=== PATIENT | female | born 1970 | race Hispanic/Latino ===

== ENCOUNTER 2018-05-04 09:09 | Outpatient (CLI) | payer OTHER | END 2018-05-04 09:10 | disposition home or self-care (01) | LOC: LAB 09:09 ==

== ENCOUNTER 2018-05-04 12:25 | Observation (INO) | payer OTHER ==
--- NOTE | 2018-05-04 13:32 | ED PDOC ---
Arrival/HPI <Keith Multani - Last Filed: 05/04/18 15:27> - General Historian: Patient - History of Present Illness Narrative History of Present Illness (Text): Patient is a 47 F with PMH abnormal uterine bleeding 2/2 fibroids (has gynecological f/u) who [place] [facility] physicians [place] after a finding of hgb of 6.4. Her most recent previous hgb was 10.5 in June 2016. Patient indicates that she is currently 2 weeks into a very heavy period in which she is using 5+ super maxi pads per day. She states that she often has heavy periods like this ever since her IUD was removed 2 years ago. Patient denies any associated symptoms such as fatigue, dizziness, SOB, BARTHOLOMEW, chest pain, f/c, n/v, abdominal pain. She is currently refusing blood transfusion due to personal safety concerns. Patient indicates that it coordinator recommended fibroid removal but she refused procedure. 05/04/18 13:27 05/04/18 13:37 Time/Duration: Prior to Arrival, 1-3 hours Symptom Course: Unchanged <Palak Motley - Last Filed: 05/04/18 15:50> - General Chief Complaint: Abnormal Labs Time Seen by Provider: 05/04/18 12:30 Past Medical History - Provider Review Nursing Documentation Reviewed: Yes - Infectious Disease Hx of Infectious Diseases: None - Tetanus Immunization Tetanus Immunization: Unknown - Reproductive Menopause: No - Past Medical History Past Medical History: No Previous - Cardiac Hx Cardiac Disorders: No Hx Pacemaker: No - Pulmonary Hx Respiratory Disorders: No - Neurological Hx Paralysis: No - HEENT Hx HEENT Disorder: No - Renal Hx Renal Disorder: No - Endocrine/Metabolic Hx Endocrine Disorders: No - Hematological/Oncological Hx Blood Transfusions: No Hx Blood Transfusion Reaction: No - Integumentary Hx Dermatological Disorder: No - Musculoskeletal/Rheumatological Hx Musculoskeletal Disorders: Yes (ARTHRITIS LOWER BACK) - Gastrointestinal Hx Gall Bladder Disease: Yes Other/Comment: GASTRIC BYPASS 8 YEARS AGO - Genitourinary/Gynecological Hx Genitourinary Disorders: No Hx Urinary Tract Infection: Yes - Psychiatric Hx Emotional Abuse: No Hx Physical Abuse: No Hx Substance Use: No - Past Surgical History Past Surgical History: No Previous - Surgical History Hx Cholecystectomy: Yes Hx Gastric Bypass Surgery: Yes Other/Comment: ACL TO RIGHT KNEE( ANTERIOR CRUCIATE LIAGAMENT SURGERY - Anesthesia Hx Anesthesia Reactions: No Hx Malignant Hyperthermia: No - Suicidal Assessment Feels Threatened In Home Enviroment: No <Palak Motley Last Filed: 05/04/18 15:50> Family/Social History - Physician Review Nursing Documentation Reviewed: Yes Family/Social History: Neoplasm/Cancer (colon in her mother in her early 50s) Smoking Status: Never Smoked Hx Alcohol Use: No Hx Substance Use: No Hx Substance Use Treatment: No <Palak Motley Last Filed: 05/04/18 15:50> Allergies/Home Meds <Keith Multani - Last Filed: 05/04/18 15:27> <Palak Motley Last Filed: 05/04/18 15:50> Allergies/Adverse Reactions: Allergies No Known Allergies Allergy (Verified 07/09/15 10:08) Home Medications: Home Meds Medication Instructions Recorded Confirmed No Known Home Med 09/02/15 09/02/15 Review of Systems - Physician Review All systems were reviewed & negative as marked: Yes - Review of Systems Constitutional: absent: Fatigue, Weight Change, Night Sweats Eyes: absent: Vision Changes Respiratory: absent: SOB, Cough Cardiovascular: absent: Chest Pain Gastrointestinal: absent: Abdominal Pain, Nausea, Vomiting Neurological: absent: Headache, Dizziness Endocrine: absent: Diaphoresis <Palak Motley Last Filed: 05/04/18 15:50> Physical Exam Vital Signs Temp Pulse Resp BP Pulse Ox 05/04/18 12:50 99.1 F 82 18 120/74 100 <Keith Multani - Last Filed: 05/04/18 15:27> Vital Signs Reviewed: Yes Vital Signs Temp Pulse Resp BP Pulse Ox 05/04/18 12:50 99.1 F 82 18 120/74 100 Temperature: Afebrile Blood Pressure: Normal Pulse: Regular Respiratory Rate: Normal Appearance: Positive for: Well-Appearing, Non-Toxic, Comfortable Pain Distress: None Mental Status: Positive for: Alert and Oriented X 3 - Systems Exam Head: Present: Atraumatic, Normocephalic Extroacular Muscles: Present: EOMI Conjunctiva: Present: Normal Mouth: Present: Moist Mucous Membranes Neck: Present: Normal Range of Motion Respiratory/Chest: Present: Clear to Auscultation, Good Air Exchange. No: Respiratory Distress, Accessory Muscle Use Cardiovascular: Present: Regular Rate and Rhythm, Normal S1, S2. No: Murmurs Abdomen: Present: Normal Bowel Sounds. No: Tenderness, Distention, Peritoneal Signs Upper Extremity: Present: Normal Inspection, Normal ROM, NORMAL PULSES. No: C yanosis, Edema Lower Extremity: Present: Normal Inspection, Edema. No: CALF TENDERNESS, NORMAL PULSES Neurological: Present: GCS=15, CN II-XII Intact, Speech Normal Skin: Present: Warm, Dry, Normal Color. No: Rashes Psychiatric: Present: Alert, Oriented x 3, Normal Insight, Normal Concentration <Palak Motley - Last Filed: 05/04/18 15:50> Medical Decision Making ED Course and Treatment: 05/04/18 15:28 Patient is a 47 year old female presenting to the emergency department for a blood transfusion due to an hgb of 6.4. In agreement with resident note, which includes further HPI details. Patient was seen and evaluated with resident, came up with plan and treatment together. <Keith Multani - Last Filed: 05/04/18 15:27> ED Course and Treatment: Impression: 47 F found to have hgb 6.4 but no associated symptoms Plan: repeat CBC iron studies patient currently refusing blood transfusion awaiting call back from Dr. García reassess and dispo 05/04/18 13:35 pts PMD contacted and patient preferences discussed. Later patient agreed to blood transfusion and signed consent after extensive discussion of risks and benefits. Patient will be admitted to hospital under Dr. Lo, pt has been discussed and he has agreed to admit the patient. 05/04/18 15:08 - Lab Interpretations Lab Results: 05/04/18 13:51 Lab Results 05/04/18 13:51: Retic Count 0.63 05/04/18 13:51: Iron 25 L, TIBC 513 H, % Saturation 5 L 05/04/18 13:51: WBC 3.1 L, RBC 4.07, Hgb 6.5 L*, Hct 23.8 L, MCV 58.5 L, MCH 16.0 L, MCHC 27.3 L, RDW 20.7 H, Plt Count 321, MPV 9.1, Gran % 53.5, Lymph % (Auto) 38.2 H, [place] % (Auto) 7.0 H, Eos % (Auto) 0.3 L, Baso % (Auto) 1.0, Gran # 1.68, Lymph # (Auto) 1.2, [place] # (Auto) 0.2, Eos # (Auto) 0.0, Baso # (Auto) 0.03 Interpretation: Abnormal lab values <MotleyPalak wilburn - Last Filed: 05/04/18 15:50> - PA / INDUSTRIAL CHEMIST / Resident Statement / has reviewed & agrees with the documentation as recorded. / has examined the patient and agrees with the treatment plan. - Scribe Statement The provider has reviewed the documentation as recorded by the Eula Ma All medical record entries made by the Mariangelibmartha were at my direction and personally dictated by me. I have reviewed the chart and agree that the record accurately reflects my personal performance of the history, physical exam, medical decision making, and the department course for this patient. I have also personally directed, reviewed, and agree with the discharge instructions and disposition. <Keith Multani - Last Filed: 05/04/18 15:27> Disposition/Present on Arrival <Keith Multani - Last Filed: 05/04/18 15:27> - Present on Arrival Any Indicators Present on Arrival: No History of DVT/PE: No History of Uncontrolled Diabetes: No Urinary Catheter: No History of Decub. Ulcer: No History Surgical Site Infection Following: None - Disposition Have Diagnosis and Disposition been Completed?: Yes Disposition Time: 15:10 Patient Plan: Admission <MotleyPalak wilburn - Last Filed: 05/04/18 15:50> - Disposition Diagnosis: Microcytic anemia Disposition: HOSPITALIZED Patient Problems: Current Active Problems Problem Status Onset Microcytic anemia Acute Condition: STABLE Discharge Instructions (ExitCare): Anemia Caused by Low Iron, Adult (DC) Forms: [employer] ([place])
[2018-05-04 14:04] LABS: BASO # 0.03 K/mm3 (0.0-2.0); EOS % 0.3 % (1.5-5.0); GRAN # 1.68 (1.4-6.5); GRAN % 53.5 % (50.0-68.0); LYMPH # 1.2 (1.2-3.4); LYMPH % 38.2 % (22.0-35.0); MEAN CELL VOLUME 58.5 fl (80.0-105.0); MEAN CORPUSCULAR HGB CONC 27.3 g/dl (31.0-37.0); MEAN PLATELET VOLUME 9.1 fl (7.0-11.0); MONO # 0.2 (0.1-0.6); RBC 4.07 10^6/uL (3.5-6.1); RED CELL DISTRIBUTION WIDTH 20.7 % (11.5-14.5); WHITE BLOOD COUNT 3.1 10^3/uL (4.5-11.0)
[2018-05-04 14:12] LABS: HEMOGLOBIN 6.5 g/dL (12.0-16.0)
[2018-05-04 14:26] LABS: TOTAL IRON BINDING CAPACITY 513 ug/dL (265-497)
[2018-05-04 14:27] LABS: % IRON SATURATION 5 % (20-55); IRON 25 ug/dL (45-180)
[2018-05-04 18:41] VITALS: BMI 27.3
[2018-05-04] MEDS ORDERED: Pneumococcal 23-Valent Vaccine IM ONE (18:41)
[2018-05-04] MEDS ORDERED: Influenza Vaccine 60 mcg/0.5 mL SYR (4YR UP) IM ONE (18:41)
--- NOTE | 2018-05-04 23:15 | HP ---
DATE OF EXAM: 05/04/2018 CHIEF COMPLAINT: Severe anemia. HISTORY OF PRESENT ILLNESS: This is a 47-year-old woman who went for CBC today and our office was called with a hemoglobin of 6.5. The patient was advised to come to the ER with labs were drawn and repeated and she was admitted for transfusion. PAST MEDICAL HISTORY: Negative for hypertension, diabetes, tuberculosis, asthma, seizure, coronary artery disease, TIA, [place], CVA, or cancers of any type. She has a history of excessive MECHANIC bleeding. She has been under the care of Dr. Ivan Johnson, was recently given prescription for some hormonal manipulation, but did not start the medicine that she was afraid of them. He had spoken to her in the past about hysterectomy, but she did not want to undergo such surgery. Past medical history is also significant for gastric bypass surgery many years ago and renal colic. MEDICATIONS: She takes no medications at home. SOCIAL HISTORY: Does not smoke. Does not drink alcohol. She is physically active with two grown children in their 20s. REVIEW OF SYSTEMS: Otherwise, unremarkable on all points. PHYSICAL EXAMINATION: GENERAL: The patient is seen resting comfortably on fifth floor, she is room 573, bed 3. HEENT AND NECK: Head and neck unremarkable. Conjunctivae pink. Thyroid not palpable. LUNGS: Respirations were easy. HEART: Regular, not tachycardic. ABDOMEN: Benign. EXTREMITIES: Showed no edema. IMPRESSION: 1. Severe anemia due to severe microcytic anemia. 2. Iron deficiency. 3. Gynecological blood loss. 4. History of gastric bypass. 5. History of renal stones. PLAN: I spoke to the patient at great length and explained our plan, first will be to "fill the " with transfusions today. She will be discharged tomorrow on oral iron supplements as to whether or not she can adequately absorb iron after gastric bypass and whether or not she will need intravenous iron infusions will be determined in approximately one week. We will repeat labs and reticulocyte count with the effectiveness of p.o. iron. She will follow up with Dr. Johnson, options being hysterectomy, fibroid embolectomy versus hormonal manipulation. Since she is 47 years old, we will ultimately complete the workup with colonoscopy because of the microcytic anemia, but more so just because of age and her mother's history of intestinal suspected of GI malignancy. Orville Lo MD [facility] # [id number]
[2018-05-05 07:22] LABS: BASO # 0.02 K/mm3 (0.0-2.0); BASO % 0.6 % (0.0-3.0); EOS % 1.2 % (1.5-5.0); GRAN # 1.64 (1.4-6.5); GRAN % 47.2 % (50.0-68.0); LYMPH # 1.3 (1.2-3.4); MEAN CELL VOLUME 63.9 fl (80.0-105.0); MEAN CORPUSCULAR HEMOGLOBIN 18.2 pg (25.0-35.0); MEAN CORPUSCULAR HGB CONC 28.4 g/dl (31.0-37.0); MEAN PLATELET VOLUME 8.4 fl (7.0-11.0); MONO # 0.5 (0.1-0.6); RBC 4.24 10^6/uL (3.5-6.1); RED CELL DISTRIBUTION WIDTH 25.3 % (11.5-14.5); WHITE BLOOD COUNT 3.5 10^3/uL (4.5-11.0)
[2018-05-05 07:25] LABS: HEMOGLOBIN 7.7 g/dL (12.0-16.0)
[2018-05-05 07:45] LABS: BLOOD UREA NITROGEN 17 mg/dL (7-21); CALCIUM 9.7 mg/dL (8.4-10.5); GFR NON-AFRICAN AMERICAN > 60
[2018-05-05 12:05] VITALS: PULSE 65; RESP 18
[2018-05-05 14:25] VITALS: BP 104/60; TEMP 98.7
[2018-05-05 16:25] LABS: BASO # 0.02 K/mm3 (0.0-2.0); BASO % 0.5 % (0.0-3.0); EOS % 0.8 % (1.5-5.0); GRAN # 1.59 (1.4-6.5); LYMPH % 49.9 % (22.0-35.0); MEAN CELL VOLUME 65.6 fl (80.0-105.0); MEAN CORPUSCULAR HEMOGLOBIN 19.1 pg (25.0-35.0); MEAN CORPUSCULAR HGB CONC 29.1 g/dl (31.0-37.0); MEAN PLATELET VOLUME 8.6 fl (7.0-11.0); MONO # 0.4 (0.1-0.6); MONO % 8.8 % (1.0-6.0); RBC 4.71 10^6/uL (3.5-6.1); RED CELL DISTRIBUTION WIDTH 26.2 % (11.5-14.5)
[2018-05-05 16:55] VITALS: O2SAT 98
--- NOTE | 2018-05-07 03:41 | DS ---
HISTORY OF PRESENT ILLNESS: This is a 47-year-old woman, who presented to the emergency room after her outpatient blood work revealed hemoglobin of 6.7. She had been seen by a computer builder and worked up extensively for excessive menstrual bleeding or MANAGER PROCESS bleeding. Hysterectomy was recommended, but the patient is very hesitant. She was given pills for hormonal manipulation, but had not started them for fear of side effects. PAST MEDICAL HISTORY: Otherwise essentially unremarkable. See history and physical for details. COURSE OF HOSPITAL STAY: The patient was admitted to the medical floor for overnight transfusion under observation status. She was given 2 units of blood overnight. I saw her late that evening. She was quite comfortable, awake, alert, clear, ambulating about the nursing desk. She received 2 units of packed red cells overnight. The following morning, hemoglobin was 7.7, so she received one more unit of packed red cells. Repeat hemoglobin was 9. She was awake, alert, clear, hemodynamically stable, in good spirits, and ready for discharge to home. We discussed at great length the workup that needed to be pursued. She would be taking iron supplements. I explained that her iron and ferritin were low. B12 and folate were normal. The source of MANAGER PROCESS bleeding was obvious. PLAN: Expected plans would be that she would have a CBC and retic count done on Tuesday or Tuesday three or four days after discharge. She will see me in the office after that. Perhaps to return to work after that, but certainly get in touch with Dr. Johnson, her computer builder regarding definitive treatment for excessive blood loss. I also spoke with the patient at length regarding her age of 48 and how she would be due for a colonoscopy in two years. Once MANAGER PROCESS bleeding has been treated perhaps we will address the coloscopy as well, although the source of her anemia and iron deficiency is obvious by history, colonoscopy would be the reasonable thing to do nonetheless given her approaching age 49. FINAL DISCHARGE DIAGNOSES: 1. Severe anemia. 2. Iron deficiency. 3. Excessive gynecological blood loss. Orville Lo MD
== END 2018-05-05 17:44 | disposition home or self-care (01) ==
LOC: ED 12:25 → ERH 15:09 → 5RSO 17:45
PROVIDERS: ADMIT Internal Medicine; ATTEND Internal Medicine
DX: D50.0 Iron deficiency anemia secondary to blood loss (chronic) (principal); N92.0 Excessive and frequent menstruation with regular cycle; Z87.442 Personal history of urinary calculi; Z87.440 Personal history of urinary (tract) infections; Z98.84 Bariatric surgery status
CPT/HCPCS: 36415; 36430; 80048; 81025; 82948; 83540; 83550; 85025; 85044; 86850; 86900; 86920; 99283; G0378; P9016

== ENCOUNTER 2018-05-08 11:56 | Outpatient (CLI) | payer OTHER | END 2018-05-08 11:57 | disposition home or self-care (01) | LOC: LAB 11:56 ==

== ENCOUNTER 2018-05-26 07:52 | Outpatient (CLI) | payer OTHER | END 2018-05-26 07:53 | disposition home or self-care (01) | LOC: LAB 07:52 | DX: D21.9 Benign neoplasm of connective and other soft tissue, unspecified (principal); D50.0 Iron deficiency anemia secondary to blood loss (chronic); N92.0 Excessive and frequent menstruation with regular cycle ==

== ENCOUNTER 2018-06-08 09:11 | Outpatient (CLI) | payer OTHER | END 2018-06-08 09:12 | disposition home or self-care (01) | LOC: PAT 09:11 | DX: N92.0 Excessive and frequent menstruation with regular cycle (principal); D25.9 Leiomyoma of uterus, unspecified; Z01.810 Encounter for preprocedural cardiovascular examination; Z01.811 Encounter for preprocedural respiratory examination; Z01.812 Encounter for preprocedural laboratory examination ==

== ENCOUNTER 2018-06-20 11:04 | Inpatient (IN) | payer OTHER ==
[2018-06-20] MEDS ORDERED: Midazolam 2 MG/2 ML VIAL ONE (14:30)
[2018-06-20] MEDS ORDERED: Propofol 10 mg/ml Inj (20 ML) ONE (14:30)
[2018-06-20] MEDS ORDERED: Rocuronium 10 mg/ml (5 ml) ONE (14:34)
[2018-06-20] MEDS ORDERED: HYDROmorphone 0.5 mg/0.5 ml ISec IVP PRN (14:35)
[2018-06-20] MEDS ORDERED: Lactated Ringer's 1,000 ML IV SCH (14:45)
[2018-06-20] MEDS ORDERED: Glycopyrrolate 0.2 mg/ml (2ml vial) ONE (15:55)
[2018-06-20] MEDS ORDERED: Bupivacaine Liposomal Inj 20 ml ONE (16:15)
--- NOTE | 2018-06-20 16:44 | PCM.SURG1 ---
Surgeon's Initial Post Op Note - Surgeon's Notes Surgeon: Dr. Johnson Job Placement Counselor: Dinora PGY2; Martin MS3 Type of Anesthesia: General Endo, Local Anesthesia Administered By: Dr. Sandy Evans Pre-Operative Diagnosis: Menorrhagia, Uterine Fibroids, Anemia Operative Findings: See operative report Post-Operative Diagnosis: Same Operation Performed: Supracervical Hysterectomy and Bilateral Salpingectomy Specimen/Specimens Removed: Uterus, bilateral tubes Estimated Blood Loss: EBL {In ML}: 20 Blood Products Given: N/A Drains Used: No Drains Post-Op Condition: Good Date of Surgery/Procedure: 06/20/18 Time of Surgery/Procedure: 16:45
[2018-06-20] MEDS ORDERED: HYDROmorphone 0.5 mg/0.5 ml ISec IVP ONE ×3 (16:45→17:20)
[2018-06-20] MEDS ORDERED: HYDROmorphone 0.5 mg/0.5 ml ISec ONE ×3 (16:48→17:25)
[2018-06-20] MEDS ORDERED: HYDROmorphone 0.2 mg/ml (30ml) 30 ML IV PRN (16:49)
[2018-06-20] MEDS ORDERED: HYDROmorphone 0.2 mg/ml (30ml) 30 ML IV ONE (17:38)
[2018-06-20 20:53] VITALS: BMI 28.3
[2018-06-20] MEDS: Oxycodone/Acetaminophen 5/325 mg Tab PO PRN (23:44)
[2018-06-21] MEDS ORDERED: DiphenhydrAMINE 50 mg/ml Inj IVP STA (00:06)
--- NOTE | 2018-06-21 03:43 | OP ---
PROCEDURE DATE: 06/20/2018 PREOPERATIVE DIAGNOSIS: Symptomatic fibroid uterus with severe menorrhagia and dysmenorrhea. POSTOPERATIVE DIAGNOSIS: Symptomatic fibroid uterus with severe menorrhagia and dysmenorrhea. PROCEDURE PERFORMED: Laparotomy, supracervical abdominal hysterectomy, bilateral salpingectomy. SURGEON: Liberty Johnson MD FABRICATOR FOAM RUBBER SURGEON: Dilan Farias DO ANESTHESIA: General endotracheal. ESTIMATED BLOOD LOSS: 100 mL. FINDINGS: Uterus approximately 10 weeks in size with a centralized fibroid. Both adnexa normal. DESCRIPTION OF PROCEDURE: The patient went as follows. After informed consent was discussed and signed by the patient, the patient was brought to the operating room. General endotracheal anesthesia was induced. The patient was prepped and draped in the usual sterile fashion. A Orosco catheter was inserted. After a time-out, a Pfannenstiel incision was made. It was brought down to the fascia. The fascia was opened. The rectus muscle was split. Peritoneum was visualized, grasped with hemostats, and opened superiorly and inferiorly avoiding the bladder. Entrance into the pelvic cavity, the uterus was examined. Ovaries were found to be normal, salpinges normal. The uterus is approximately 10 to 11 weeks in size with a centralized hard fibroid. The bowels were packed back with laps, and O'Audi-O'Gates retractor was inserted. The uterus was elevated upwards. With the LigaSure device, the ovarian ligament as well as the salpinx up to the round ligaments were all cauterized appropriately and transected individually. Hemostasis was excellent throughout this entire time. Once this was performed on both sides, the bladder flap was developed in the vesicouterine fold with sharp dissection. Hemostasis again here was excellent. Kochers were used to grasp the cardinal ligaments which were clamped, cut, and tied with 0 Vicryl suture. Timeframe of the cervix was amputated from the remainder of the uterine body and sent to Pathology for examination. Endocervical canal was curetted with LEEP cone biopsy device. The cervix was then sutured and imbricated with 0 Vicryl suture. Hemostasis was excellent throughout this time. Attention was then was turned to the ovaries where the salpinges were visualized, grasped and with a LigaSure device, it was amputated appropriately. Left edge of the salpinx tissue itself was slightly bleeding, and a suture of 2-0 Vicryl was placed in this area for control of hemostasis. Pelvis was thoroughly irrigated, suctioned dry. Hemostasis was excellent. A patch of Interceed was then placed over the cervical stump. All laps were then removed and accounted for. The peritoneum was then closed with a 2-0 chromic. The fascia was closed with 0 Vicryl. Exparel was injected into the fascia for postoperative pain. The subcu was closed with a 2-0 plain. A 4-0 Monocryl was used for the skin. Dermabond with Prineo was inserted over the skin. The patient was gently awakened, sent to the recovery room in stable condition. Liberty Johnson MD
[2018-06-21 07:48] LABS: BASO # 0.02 K/mm3 (0.0-2.0); BASO % 0.3 % (0.0-3.0); EOS % 0.5 % (1.5-5.0); HEMOGLOBIN 10.2 g/dL (12.0-16.0); LYMPH # 1.7 (1.2-3.4); LYMPH % 25.6 % (22.0-35.0); MEAN CELL VOLUME 74.8 fl (80.0-105.0); MEAN CORPUSCULAR HEMOGLOBIN 22.1 pg (25.0-35.0); MEAN CORPUSCULAR HGB CONC 29.6 g/dl (31.0-37.0); MEAN PLATELET VOLUME 8.9 fl (7.0-11.0); MONO # 0.5 (0.1-0.6); MONO % 7.6 % (1.0-6.0); PLATELET COUNT 225 10^3/uL (120.0-450.0); RBC 4.61 10^6/uL (3.5-6.1); WHITE BLOOD COUNT 6.6 10^3/uL (4.5-11.0)
[2018-06-21 08:10] LABS: BLOOD UREA NITROGEN 12 mg/dL (7-21); CALCIUM 9.6 mg/dL (8.4-10.5); GFR NON-AFRICAN AMERICAN > 60
[2018-06-21] MEDS: Oxycodone/Acetaminophen 5/325 mg Tab PO PRN ×3 (12:20→21:12)
--- NOTE | 2018-06-21 17:23 | CP.PCM.PN ---
Subjective - Date & Time of Evaluation Date of Evaluation: 06/21/18 Time of Evaluation: 17:20 - Subjective Subjective: ObGyn Progress note. Dr. Johnson Pt seen and examined. States that she was doing well this morning but has not yet passed gas and would feel safer if she stayed overnight. States that she does not have an appetite. Denies any N/V/D. No F/C. Has been voiding freely. Has been using IS and has been ambulating around the hospital cardenas. Denies any Flatus or BMs. Objective - Vital Signs/Intake and Output Vital Signs (last 24 hours): Temp Pulse Resp BP Pulse Ox 98.6 F 68 16 99/61 L 96 06/21/18 14:39 06/21/18 14:39 06/21/18 14:39 06/21/18 14:39 06/21/18 14:39 Intake and Output: 06/21/18 06/21/18 06:59 18:59 Intake Total 180 240 Output Total 900 Balance -720 240 - Medications Medications: Current Medications Docusate Sodium (Colace) 100 mg PO BID CHRISTELLE Last Admin: 06/21/18 17:02 Dose: 100 mg Ondansetron HCl (Zofran Inj) 4 mg IVP Q6 PRN PRN Reason: Nausea/Vomiting Oxycodone/Acetaminophen (Percocet 5/325 Mg Tab) 1 tab PO Q4 PRN PRN Reason: Pain, moderate (4-7) Stop: 06/23/18 16:46 Last Admin: 06/21/18 16:58 Dose: 1 tab - Labs Labs: 06/21/18 07:00 06/21/18 07:00 - Constitutional Appears: Well, Non-toxic, No Acute Distress - Head Exam Head Exam: ATRAUMATIC, NORMAL INSPECTION, NORMOCEPHALIC - Eye Exam Eye Exam: EOMI, Normal appearance - ENT Exam ENT Exam: Mucous Membranes Moist - Respiratory Exam Respiratory Exam: NORMAL BREATHING PATTERN. absent: Accessory Muscle Use, Respiratory Distress - Cardiovascular Exam Cardiovascular Exam: absent: JVD - GI/Abdominal Exam GI & Abdominal Exam: Soft. absent: Distended, Firm, Guarding, Rebound Additional comments: Incision clean, dry and intact. - Extremities Exam Extremities Exam: Normal Inspection. absent: Calf Tenderness - Neurological Exam Neurological Exam: Alert, Awake, Oriented x3 - Psychiatric Exam Psychiatric exam: Normal Affect, Normal Mood - Skin Skin Exam: Dry, Intact, Normal Color, Warm Assessment and Plan - Assessment and Plan (Free Text) Assessment: 47yo F s/p Supracervical Hysterectomy and bilateral salpingectomy. POD 1 Plan: - Encourage ambulation - Encourage OOBTC. IS use. - Pain management - Regular diet - Monitor bowel function Further recs as per Dr. Alex Farias PGY2 surgery
[2018-06-21] MEDS: Simethicone 80 mg Chewtab PO PRN (18:05)
[2018-06-21] MEDS ORDERED: POLYETHYLENE GLYCOL 3350 17 GM/Dose PACKET PO ONE (19:34)
[2018-06-21 22:07] VITALS: RESP 18
[2018-06-22] MEDS: Oxycodone/Acetaminophen 5/325 mg Tab PO PRN ×3 (05:02→13:28)
[2018-06-22] MEDS: POLYETHYLENE GLYCOL 3350 17 GM/Dose PACKET PO SCH ×2 (05:34→09:11)
[2018-06-22 07:32] VITALS: BP 111/74; PULSE 70; TEMP 98.2; O2SAT 99
[2018-06-22] MEDS: Simethicone 80 mg Chewtab PO PRN ×2 (09:10→13:28)
== END 2018-06-22 16:47 | disposition home or self-care (01) | DRG 743 ==
LOC: SDS 11:04 → 5RSO 19:37
PROVIDERS: ADMIT Obstetrics & Gynecology Gynecology; ATTEND Obstetrics & Gynecology Gynecology
PROC: 0UT70ZZ Resection of Bilateral Fallopian Tubes, Open Approach (ICD-10-PCS; 2018-06-20)
PROC: 3E0P05Z Introduction of Adhesion Barrier into Female Reproductive, Open Approach (ICD-10-PCS; 2018-06-20)
PROC: 0UT90ZL Resection of Uterus, Supracervical, Open Approach (ICD-10-PCS; principal; 2018-06-20 13:00)
DX: D25.9 Leiomyoma of uterus, unspecified (principal); N80.0 Endometriosis of uterus; N83.8 Other noninflammatory disorders of ovary, fallopian tube and broad ligament; N94.6 Dysmenorrhea, unspecified; N92.0 Excessive and frequent menstruation with regular cycle

== ENCOUNTER 2018-07-25 12:16 | Outpatient (CLI) | payer OTHER | END 2018-07-25 12:17 | disposition home or self-care (01) | LOC: LAB 12:16 ==